=== PATIENT | female | born 2000 | race Two or more races ===

== ENCOUNTER 2019-01-25 12:38 | Emergency (ER) | payer OTHER ==
[~2019-01-25] VITALS: Ht 149.9 cm; Wt 72.1 kg
[~2019-01-25 12:38] MED LIST: KETO10TA2 PO
== END 2019-01-25 18:34 | disposition home or self-care (01) ==
LOC: ER 12:38
DX: J45.998 Other asthma (principal)

== ENCOUNTER 2020-07-26 21:12 | Emergency (ER) | payer OTHER ==
[~2020-07-26] VITALS: Ht 152.4 cm; Wt 72.6 kg
== END 2020-07-27 02:55 | disposition home or self-care (01) ==
LOC: ER 21:12
DX: N83.292 Other ovarian cyst, left side (principal); N93.8 Other specified abnormal uterine and vaginal bleeding